=== PATIENT | male | born 1945 | race Caucasian/White ===

== ENCOUNTER 2016-12-12 07:03 | Emergency (ER) | payer MEDICARE ==
[2016-12-12 07:20] VITALS: BP 146/72
--- NOTE | 2016-12-12 12:05 | UC ---
Dexter Rachel Anna, scribed for Anastasiia Watters MD on 12/12/16 at 0722 . Ear Complaint HPI - HPI Summary HPI Summary: Patient is a 71 y/o male coming to [facility] presenting with left ear pain that began approx one week ago, worse since this am. Also reports some vertiginous, unsteady feelings, over the same timeframe. Sometimes vertigo to the left, but mostly unsteady. States has had the same symptoms in the past, most recently to this degree in May 2016; at that point, he had an ear infection (or fluid). Sx alleviated with ear drops and po abx. He had leftover ear drops (cortisporin ?), which he used in L ear yesterday. No facial pain, although difficult to tell since pain radiates from ear to face and neck. No fever / chills. No sob / cp / palpitations. No gi sx. No rash. No headache. No visual changes. No hearing issues, although a little stuffed up. No rash. Being followed by Dr. Rodriguez from [facility]. Recently had ct angio of carotids, and is planning to f/u accordingly. - History of Current Complaint Chief Complaint: UCEar Stated Complaint: EAR PAIN Hx Obtained From: Patient Onset/Duration: Still Present Severity Initially: Moderate Severity Currently: Moderate - Allergies/Home Medications Allergies/Adverse Reactions: Allergies Allergy/AdvReac Type Severity Reaction Status Date / Time No Known Allergies Allergy Verified 12/08/16 10:37 Home Medications: Home Medications oxyCODONE/Acetamin 5/325 MG* [Percocet 5/325 TAB*] 1 tab PO QID PRN 12/12/16 [ History Confirmed 12/12/16] PMH/Surg Hx/FS Hx/Imm Hx Previously Healthy: No - periph vasc dz. Endocrine History Of: Denies: Diabetes, Thyroid Disease Cardiovascular History Of: Reports: Cardiac Disorders - triple bypass, arteriosclerosis, Hypertension - on medication, Atrial Fibrillation Respiratory History Of: Reports: Bronchitis - LAST 3 YEARS Denies: COPD, Asthma GI/ History Of: Denies: Ulcer, Renal Disease - Surgical History Surgical History: Yes Surgery Procedure, Year, and Place: 9 stents cardiac, bypass, femoral stents, and carotid endartarectomy, Abdominal aortic stenosis surgery, right shoulder, knee surgery - Family History Known Family History: Positive: Cardiac Disease Negative: Blood Disorder - Social History Alcohol Use: None Substance Use Type: None Smoking Status (MU): Current Every Day Smoker Type: Cigarettes Amount Used/How Often: 7-8 CIG/DAY Have You Smoked in the Last Year: Yes - Immunization History Most Recent Influenza Vaccination: 2014 Most Recent Tetanus Shot: utd Review of Systems Constitutional: Negative Skin: Negative Eyes: Negative ENT: Ear Ache - see hpi Respiratory: Negative Cardiovascular: Negative Gastrointestinal: Negative Genitourinary: Negative Motor: Negative Neurovascular: Negative Musculoskeletal: Negative, Other: - + arthritic pain, chronic Neurological: Negative, Other - see hpi Psychological: Negative All Other Systems Reviewed And Are Negative: Yes Physical Exam Triage Information Reviewed: Yes Appearance: Well-Nourished - sitting up. able to ambulate slowly. Vital Signs: Temp Pulse Resp BP Pulse Ox 98 F 82 16 146/72 95 12/12/16 07:15 12/12/16 07:15 12/12/16 07:15 12/12/16 07:15 12/12/16 07:15 Vital Signs Reviewed: Yes Eye Exam: Normal ENT Exam: Other - L TM - + dull without light reflex. + erythema ranulfo inf ant and post margins. EAC mild cerumen. R TM initially not visible 2/2 cerumen impaction. S/p irrigation TM light rdz, + light reflex, intact. Neck exam: Other - + djd appearance. + L > R carotid bruit (states was aware) Respiratory Exam: Normal Respiratory: Positive: Chest non-tender, Lungs clear, Normal breath sounds, No respiratory distress, No accessory muscle use Cardiovascular Exam: Normal Cardiovascular: Positive: RRR, No Murmur, Pulses Normal - L radial pulse not palpable - 2/2 previous removal. R radial pulse good, correlate with HR., Brisk Capillary Refill, Other: - HR regular, good general skin color, good capillary refill Abdominal Exam: Normal Abdomen Description: Positive: Nontender, No Organomegaly, Soft Bowel Sounds: Positive: Present Musculoskeletal Exam: Normal Musculoskeletal: Positive: Strength Intact - gait slow steady Neurological Exam: Normal - Nonfocal, grossly intact. Except see hpi, subj dizzy. No nystagmus appreciated. Psychological Exam: Normal - Conversing easily and appropriately Skin Exam: Normal - No visible or reported rash Ear Complaint Course/Dx - Course Course Of Treatment: No new problems in CCC. I reviewed previous UC notes from May 2016. Rx cephalosporin at that time. Reviewed CT report from last week ( Dr. Rodriguez ordered), pt reports that he knows his R carotid is occluded, and L has problems. He reports that his symptoms are just like those in May. Indeed the examination is noteworthy for fluid and redness, c/w infection. However, given his significant vascular issues, he was strongly encouraged to go to the ED for worse or new symptoms, or symptoms that do not get better. R EAC flushed, he said he can hear better. Questions answered to the best of my ability. F/u PCP - he will call for f/u. F/u Vascular as planned. Considered below differential Dxs. - Differential Dx/Diagnosis Provider Diagnoses: OM L ear. Vertigo. Cerumen impaction Discharge - Discharge Plan Condition: Stable Disposition: HOME Prescriptions: Cefuroxime Axetil [Ceftin] 500 mg PO BID #20 tab Patient Education Materials: Cerumen Impaction (ED), Vertigo (ED), Otitis Media (ED), Earache (ED) Referrals: Carlene Miller MD [Primary Care Provider] - Additional Instructions: Please follow up with your primary care provider, Dr. Miller. Call today to schedule follow up appointment for this week. Follow up with Dr. Rodriguez. Call his office to schedule follow up appointment as planned. Seek immediate medical attention in the Emergency Department for worsening problems in the meantime. The documentation as recorded by the Dexter alvarez Anna accurately reflects the service I personally performed and the decisions made by me, Anastasiia Watters MD.
== END 2016-12-12 08:09 | disposition home or self-care (01) ==
LOC: UCEAST 07:03
DX: H66.92 Otitis media, unspecified, left ear (principal); R42 Dizziness and giddiness; H61.21 Impacted cerumen, right ear; I25.10 Atherosclerotic heart disease of native coronary artery without angina pectoris; Z95.5 Presence of coronary angioplasty implant and graft; Z95.1 Presence of aortocoronary bypass graft; F17.210 Nicotine dependence, cigarettes, uncomplicated
CPT/HCPCS: 99213; G0463

== ENCOUNTER 2017-01-13 13:02 | Emergency (ER) | payer MEDICARE ==
[2017-01-13 13:20] VITALS: BP 188/88
--- NOTE | 2017-01-13 14:45 | UC ---
Jairo Rachel Matthew, scribed for Ester Anthony DO on 01/13/17 at 1355 . Cardiac HPI - HPI Summary HPI Summary: A 71 y/o male presents to [facility] with pain behind the right shoulder blade since this morning. The pain is worse with deep breaths, described as sharp, does not radiate, and rated 9/10 in severity. The patient took oxycodone [employer] without relief. He also had chest pain this morning just to the right of center, associated clammy diaphoresis when waking up this morning which has since resolved. He took rolaids with relief in the chest pain. The patient denies SOB , wheezing, fever, dizziness, nausea, vomiting, pain in the left neck or jaw, and trauma. The patient occasionally lifts light weights. 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 He was recently Dx with polymyalgia rheumatica, which was relieved with prednisone that he's currently taking. The patient fracture his ribs 3 years ago. PMHx of CABG x3, HTN, Atherosclerosis. - History of Current Complaint Chief Complaint: UCChestPain Stated Complaint: UPPER BACK PAIN Time Seen by Provider: 01/13/17 13:13 Hx Obtained From: Patient Onset/Duration: Sudden Onset, Lasting Hours, Still Present Timing: Constant Initial Severity: Moderate Current Severity: Moderate Chest Pain Location: Right Anterior - just to the rt of center Character: Dull/Aching, Sharp/Stabbing Aggravating: Movement, Deep Breaths Alleviating: OTC Meds - rolaids Associated Signs & Symptoms: Positive: Chest Pain, Diaphoresis, Back Pain. Negative: Dizziness, SOB, Fever, Nausea/Vomiting, Cough, Hemoptysis, Abdominal Pain, Calf Pain/Swelling - Allergy/Home Medications Allergies/Adverse Reactions: Allergies Allergy/AdvReac Type Severity Reaction Status Date / Time Beta Adrenergic Blockers Allergy Unknown Verified 01/13/17 13:16 Reaction Details PMH/Surg Hx/FS Hx/Imm Hx Endocrine History Of: Denies: Diabetes, Thyroid Disease Cardiovascular History Of: Reports: Cardiac Disorders - triple bypass, arteriosclerosis, Hypertension - on medication, Atrial Fibrillation Respiratory History Of: Reports: Bronchitis - LAST 3 YEARS Denies: COPD, Asthma GI/ History Of: Denies: Ulcer, Renal Disease - Surgical History Surgical History: Yes Surgery Procedure, Year, and Place: 9 stents cardiac, bypass, femoral stents, and carotid endartarectomy, Abdominal aortic stenosis surgery, right shoulder, knee surgery - Family History Known Family History: Positive: Cardiac Disease Negative: Blood Disorder - Social History Occupation: Retired Lives: With Family Alcohol Use: None Substance Use Type: None Smoking Status (MU): Current Every Day Smoker Type: Cigarettes Amount Used/How Often: 7-8 CIG/DAY Length of Time of Smoking/Using Tobacco: 45 years Have You Smoked in the Last Year: Yes Cessation Counseling: Patient Advised to Stop - Immunization History Most Recent Influenza Vaccination: 2014 Most Recent Tetanus Shot: utd Review of Systems Constitutional: Chills, Other - Diaphoresis Skin: Negative Eyes: Negative ENT: Negative Respiratory: Negative Cardiovascular: Negative Gastrointestinal: Negative Genitourinary: Negative Motor: Negative Neurovascular: Negative Musculoskeletal: Negative Neurological: Negative Psychological: Negative All Other Systems Reviewed And Are Negative: Yes Physical Exam Triage Information Reviewed: Yes Appearance: Well-Nourished, Pain Distress - mild to moderate Vital Signs: Initial Vital Signs Temp 99.3 F 01/13/17 13:16 Pulse 94 01/13/17 13:16 Resp 20 01/13/17 13:16 BP 188/88 01/13/17 13:16 Pulse Ox 96 01/13/17 13:16 Vital Signs Reviewed: Yes Eyes: Positive: Conjunctiva Clear. Negative: Discharge ENT: Positive: Hearing grossly normal. Negative: Muffled/hoarse voice Neck: Positive: Supple, Nontender Respiratory: Positive: Chest non-tender, Lungs clear, Normal breath sounds, No respiratory distress, No accessory muscle use Cardiovascular: Positive: RRR, Other: - Murmur Abdomen Description: Positive: Nontender, Soft Bowel Sounds: Positive: Present Musculoskeletal: Positive: Strength Intact, No Edema, Other: - Point tender over the costovertebral junction of rib 5 and 6; NO calf tenderness Neurological Exam: Normal Neurological: Positive: Muscle Tone Normal Psychological: Positive: Age Appropriate Behavior Skin Exam: Other - warm, dry, normal color Diagnostics - EKG Cardiac Rate: NL - 94 bpm Cardiac Rhythm: Sinus: Normal - Minimal ST depression in V3-V5; 13:08 - Differential Diagnoses - Chest Pain Differential Diagnosis/HQI/PQRI: ACS, Chest Wall - costochondritis, rib dysfunction, GI Disease, Lower Respiratory Infection, Pulmonary Embolism, Other : - disection - Clinical Impression Provider Diagnoses: cp - Physician Notifications Discussed Patient Care With: Dr. Joseph (ED Physician) at 14:01 -- Notified of patient's history and accepts transfer of the patient. Discharge - Discharge Plan Condition: Stable Disposition: TRANS HIGHER LVL OF CARE FAC Referrals: Carlene Miller MD [Primary Care Provider] - The documentation as recorded by the Jairo alvarez Matthew accurately reflects the service I personally performed and the decisions made by , Ester Anthony DO.
== END 2017-01-13 14:10 | disposition short-term general hospital (02) ==
LOC: UCEAST 13:02
DX: R07.89 Other chest pain (principal); M54.6 Pain in thoracic spine; I70.90 Unspecified atherosclerosis; Z95.1 Presence of aortocoronary bypass graft; I10 Essential (primary) hypertension; F17.210 Nicotine dependence, cigarettes, uncomplicated
CPT/HCPCS: 93005; 99212; G0463

== ENCOUNTER 2017-01-13 14:15 | Emergency (ER) | payer MEDICARE ==
[2017-01-13] MEDS ORDERED: Morphine INJ* 4 MG/ML 1 ML SYRINGE IV ONE ×2 (14:48→17:04)
[2017-01-13] MEDS ORDERED: Ondansetron INJ* 2 MG/ML VIAL IV ONE (14:48)
[2017-01-13] MEDS: NS 0.9% 1000 ML* 2,000 ML IV ONE (14:58)
--- NOTE | 2017-01-13 15:26 | RAD ---
INDICATION: Right-sided chest pain. COMPARISON: Comparison is made with a prior chest x-ray study from April 12, 2015. TECHNIQUE: A portable view of the chest was obtained. FINDINGS: The patient is status post sternotomy and coronary artery bypass surgery. The heart is within normal limits in size. The lungs are clear. No pleural effusion is seen. IMPRESSION: POST SURGICAL CHANGES, NO EVIDENCE FOR ACUTE FINDING.
[2017-01-13 15:38] LABS: Hematocrit 40 % (42-52); Hemoglobin 13.4 g/dl (14.0-18.0); Mean Corpuscular HGB Conc 33 g/dl (31-36); Mean Corpuscular Hemoglobin 31 pg (27-31); Mean Corpuscular Volume 93 fL (80-94); Mean Platelet Volume 8 um3 (7.4-10.4); Red Blood Count 4.34 10^6/ul (4.0-5.4); Red Cell Distribution Width 17 % (10.5-15); White Blood Count 15.5 10^3/ul (3.5-10.8)
[2017-01-13 15:48] LABS: Urine Bacteria Absent (Absent); Urine Bilirubin Negative (Negative); Urine Glucose Negative (Negative); Urine Nitrite Negative (Negative)
[2017-01-13 15:52] LABS: Troponin I 0.03 ng/mL (<0.04)
[2017-01-13 15:54] LABS: ALT 35 U/L (7-52); AST 17 U/L (13-39); Albumin 4.1 g/dL (3.2-5.2); Alkaline Phosphatase 94 U/L (34-104); Anion Gap 9 mmol/L (2-11); BUN/Creatinine Ratio 27.1 (8-20); Blood Urea Nitrogen 32 mg/dL (6-24); C Reactive Protein < 1.00 mg/L (< 5.00); CO2 Carbon Dioxide 27 mmol/L (22-32); Chloride 99 mmol/L (101-111); Creatine Kinase 30 U/L (10-223); EGFR African American 77.8 (>60); EGFR Non-African American 60.5 (>60); Globulin 3.3 g/dL (2-4); Glucose 145 mg/dL (70-100); Lipase 45 U/L (11.0-82.0); Magnesium 1.8 mg/dL (1.9-2.7); Potassium 4.7 mmol/L (3.5-5.0); Sodium 135 mmol/L (133-145); Total Protein 7.4 g/dL (6.4-8.9)
[2017-01-13] MEDS ORDERED: Iohexol 350* (CONTRAST) 500 ML MDV IV ONE (16:02)
[2017-01-13 16:03] LABS: TSH (Thyroid Stimulating Horm) 1.19 mcIU/mL (0.34-5.60)
--- NOTE | 2017-01-13 16:37 | RAD ---
INDICATION: Right upper chest pain. COMPARISON: Comparison is made with a prior CT angiogram of the chest from November 30, 2014. TECHNIQUE: A CT angiogram of the chest was performed with intravenous following intravenous injection of 70 ml of Omnipaque 350 nonionic contrast. Contiguous axial sections were obtained from the lung apices through the lung bases. Images were reconstructed in the coronal and sagittal planes. FINDINGS: There is relatively homogeneous opacification of the pulmonary arteries. No intraluminal filling defect or pulmonary embolism is seen. The patient is status post sternotomy. The heart is mildly enlarged. No pericardial effusion is present. The thoracic aorta is normal in caliber. There is moderate calcific plaque present. There is homogeneous enhancement of the aorta. There is no evidence for dissection. No significant enlarged mediastinal or hilar lymph nodes are seen. There is mild dependent bilateral lower lobe subsegmental atelectasis. The lungs are otherwise clear. No pleural effusion is seen. No significant focal osseous abnormality is seen. IMPRESSION: NO EVIDENCE FOR PULMONARY EMBOLISM.
--- NOTE | 2017-01-13 17:56 | ED ---
Kwame Rachel Billy, scribed for Giancarlo Mcdonough MD on 01/13/17 at 1505 . HPI Chest Pain - HPI Summary HPI Summary: Patient is a 71 year-old male coming to [facility] for evaluation of right-upper chest pain radiating to the upper back "on the top of the right lung." Symptoms began approximately 3 hours [employer]. He describes sharp pain that is worse with deep breaths. Denies any SOB. Pain severity 9/10, unimproved with oxycodone. Denies any recent injury or trauma. Denies headache. - History of Current Complaint Chief Complaint: EDChestPainROMI Time Seen by Provider: 01/13/17 14:46 Hx Obtained From: Patient Onset/Duration: Started Hours Ago, Still Present Timing: Constant Initial Severity: Moderate Current Severity: Moderate Pain Intensity: 9 Pain Scale Used: 0-10 Numeric Chest Pain Location: Right Anterior Chest Pain Radiates: Yes Chest Pain Radiates To:: Back Character: Sharp/Stabbing Aggravating Factor(s): Deep Breaths Alleviating Factor(s): Nothing Associated Signs and Symptoms: Positive: Chest Pain, Back Pain. Negative: Shortness of Breath - Allergy/Home Medications Allergies/Adverse Reactions: Allergies Allergy/AdvReac Type Severity Reaction Status Date / Time Beta Adrenergic Blockers Allergy Unknown Verified 01/13/17 13:16 Reaction Details PMH/Surg Hx/FS Hx/Imm Hx Endocrine/Hematology History: Denies: Hx Diabetes, Hx Thyroid Disease Cardiovascular History: Reports: Hx Hypertension - on medication Respiratory History: Denies: Hx Asthma, Hx Chronic Obstructive Pulmonary Disease (COPD) GI History: Denies: Hx Ulcer History: Denies: Hx Renal Disease - Surgical History Surgery Procedure, Year, and Place: 9 stents cardiac, bypass, femoral stents, and carotid endartarectomy, Abdominal aortic stenosis surgery, right shoulder, knee surgery - Immunization History Date of Tetanus Vaccine: 2012 Date of Influenza Vaccine: 2013 Infectious Disease History: No Infectious Disease History: Denies: Hx Clostridium Difficile, Hx Hepatitis, Hx Human Immunodeficiency Virus (HIV), Hx of Known/Suspected MRSA, Hx Shingles, Hx Tuberculosis, History Other Infectious Disease, Traveled Outside the [place] in Last 30 Days - Family History Known Family History: Positive: Cardiac Disease Negative: Blood Disorder - Social History Alcohol Use: None Substance Use Type: Reports: None Smoking Status (MU): Current Every Day Smoker Type: Cigarettes Amount Used/How Often: 7-8 CIG/DAY Length of Time of Smoking/Using Tobacco: 45 years Have You Smoked in the Last Year: Yes Review of Systems Negative: Fever Positive: Chest Pain Negative: Shortness Of Breath Negative: Abdominal Pain Negative: Headache All Other Systems Reviewed And Are Negative: Yes Physical Exam Triage Information Reviewed: Yes Vital Signs On Initial Exam: Initial Vitals Temp Pulse Resp BP Pulse Ox 98.2 F 87 20 179/72 98 01/13/17 14:19 01/13/17 14:19 01/13/17 14:19 01/13/17 14:19 01/13/17 14:19 Vital Signs Reviewed: Yes Appearance: Positive: Well-Appearing, Pain Distress - Mild to moderate pain distress. Skin: Positive: Warm, Skin Color Reflects Adequate Perfusion, Dry Head/Face: Positive: Normal Head/Face Inspection Eyes: Positive: EOMI, LUCY ENT: Positive: Normal ENT inspection Neck: Positive: Supple, Nontender Respiratory/Lung Sounds: Positive: Clear to Auscultation, Breath Sounds Present Cardiovascular: Positive: RRR, Murmur Abdomen Description: Positive: Nontender, Soft Bowel Sounds: Positive: Present Musculoskeletal: Positive: Normal, Strength/ROM Intact, Other - Calves are soft and nontender.. Negative: Edema Left, Edema Right Neurological: Positive: Normal, Sensory/Motor Intact, Alert, Oriented to Person Place, Time Psychiatric: Positive: Affect/Mood Appropriate Diagnostics - Vital Signs Vital Signs Temp Pulse Resp BP Pulse Ox 01/13/17 14:58 16 01/13/17 14:19 98.2 F 87 20 179/72 98 - Laboratory Lab Results: Lab Results 01/13/17 01/13/17 01/13/17 Range/Units 15:00 15:00 15:00 WBC 15.5 H (3.5-10.8) 10^3/ul RBC 4.34 (4.0-5.4) 10^6/ul Hgb 13.4 L (14.0-18.0) g/dl Hct 40 L (42-52) % MCV 93 (80-94) fL MCH 31 (27-31) pg MCHC 33 (31-36) g/dl RDW 17 H (10.5-15) % Plt Count 406 (150-450) 10^3/ul MPV 8 (7.4-10.4) um3 Neut % (Auto) 80.9 (38-83) % Lymph % (Auto) 13.8 L (25-47) % [place] % (Auto) 4.5 (1-9) % Eos % (Auto) 0.2 (0-6) % Baso % (Auto) 0.6 (0-2) % Absolute Neuts (auto) 12.5 H (1.5-7.7) 10^3/ul Absolute Lymphs (auto) 2.1 (1.0-4.8) 10^3/ul Absolute Monos (auto) 0.7 (0-0.8) 10^3/ul Absolute Eos (auto) 0 (0-0.6) 10^3/ul Absolute Basos (auto) 0.1 (0-0.2) 10^3/ul Absolute Nucleated RBC 0.03 10^3/ul Nucleated RBC % 0.2 INR (Anticoag Therapy) 0.86 L (0.89-1.11) APTT 24.5 L (26.0-36.3) seconds Sodium (133-145) mmol/L Potassium (3.5-5.0) mmol/L Chloride (101-111) mmol/L Carbon Dioxide (22-32) mmol/L Anion Gap (2-11) mmol/L BUN (6-24) mg/dL Creatinine (0.67-1.17) mg/dL Est GFR ( Amer) (>60) Est GFR (Non-Af Amer) (>60) BUN/Creatinine Ratio (8-20) Glucose (70-100) mg/dL Lactic Acid (0.5-2.0) mmol/L Calcium (8.6-10.3) mg/dL Magnesium (1.9-2.7) mg/dL Total Bilirubin (0.2-1.0) mg/dL AST (13-39) U/L ALT (7-52) U/L Alkaline Phosphatase (34-104) U/L Total Creatine Kinase (10-223) U/L CK-MB (CK-2) (0.6-6.3) ng/mL Troponin I (<0.04) ng/mL C-Reactive Protein (< 5.00) mg/L B-Natriuretic Peptide ( - 100) pg/mL Total Protein (6.4-8.9) g/dL Albumin (3.2-5.2) g/dL Globulin (2-4) g/dL Albumin/Globulin Ratio (1-3) Lipase (11.0-82.0) U/L TSH (0.34-5.60) mcIU/mL Urine Color Yellow Urine Appearance Clear Urine pH 6.0 (5-9) Ur Specific [place] 1.014 (1.010-1.030) Urine Protein 2+(100 mg/dl) H (Negative) Urine Ketones Negative (Negative) Urine Blood Negative (Negative) Urine Nitrate Negative (Negative) Urine Bilirubin Negative (Negative) Urine Urobilinogen Negative (Negative) Ur Leukocyte Esterase Negative (Negative) Urine WBC (Auto) Trace(0-5/hpf) (Absent) Urine RBC (Auto) 2+(6-10/hpf) H (Absent) Ur Squamous Epith Cells Present H (Absent) Urine Bacteria Absent (Absent) Hyaline Casts Present H (Absent) Urine Glucose Negative (Negative) 01/13/17 01/13/17 01/13/17 Range/Units 15:00 15:00 15:00 WBC (3.5-10.8) 10^3/ul RBC (4.0-5.4) 10^6/ul Hgb (14.0-18.0) g/dl Hct (42-52) % MCV (80-94) fL MCH (27-31) pg MCHC (31-36) g/dl RDW (10.5-15) % Plt Count (150-450) 10^3/ul MPV (7.4-10.4) um3 Neut % (Auto) (38-83) % Lymph % (Auto) (25-47) % [place] % (Auto) (1-9) % Eos % (Auto) (0-6) % Baso % (Auto) (0-2) % Absolute Neuts (auto) (1.5-7.7) 10^3/ul Absolute Lymphs (auto) (1.0-4.8) 10^3/ul Absolute Monos (auto) (0-0.8) 10^3/ul Absolute Eos (auto) (0-0.6) 10^3/ul Absolute Basos (auto) (0-0.2) 10^3/ul Absolute Nucleated RBC 10^3/ul Nucleated RBC % INR (Anticoag Therapy) (0.89-1.11) APTT (26.0-36.3) seconds Sodium 135 (133-145) mmol/L Potassium 4.7 (3.5-5.0) mmol/L Chloride 99 L (101-111) mmol/L Carbon Dioxide 27 (22-32) mmol/L Anion Gap 9 (2-11) mmol/L BUN 32 H (6-24) mg/dL Creatinine 1.18 H (0.67-1.17) mg/dL Est GFR ( Amer) 77.8 (>60) Est GFR (Non-Af Amer) 60.5 (>60) BUN/Creatinine Ratio 27.1 H (8-20) Glucose 145 H (70-100) mg/dL Lactic Acid 2.0 (0.5-2.0) mmol/L Calcium 10.0 (8.6-10.3) mg/dL Magnesium 1.8 L (1.9-2.7) mg/dL Total Bilirubin 0.50 (0.2-1.0) mg/dL AST 17 (13-39) U/L ALT 35 (7-52) U/L Alkaline Phosphatase 94 (34-104) U/L Total Creatine Kinase 30 (10-223) U/L CK-MB (CK-2) 2.4 (0.6-6.3) ng/mL Troponin I 0.03 (<0.04) ng/mL C-Reactive Protein < 1.00 (< 5.00) mg/L B-Natriuretic Peptide 62 ( - 100) pg/mL Total Protein 7.4 (6.4-8.9) g/dL Albumin 4.1 (3.2-5.2) g/dL Globulin 3.3 (2-4) g/dL Albumin/Globulin Ratio 1.2 (1-3) Lipase 45 (11.0-82.0) U/L TSH 1.19 (0.34-5.60) mcIU/mL Urine Color Urine Appearance Urine pH (5-9) Ur Specific [place] (1.010-1.030) Urine Protein (Negative) Urine Ketones (Negative) Urine Blood (Negative) Urine Nitrate (Negative) Urine Bilirubin (Negative) Urine Urobilinogen (Negative) Ur Leukocyte Esterase (Negative) Urine WBC (Auto) (Absent) Urine RBC (Auto) (Absent) Ur Squamous Epith Cells (Absent) Urine Bacteria (Absent) Hyaline Casts (Absent) Urine Glucose (Negative) 01/13/17 Range/Units 17:12 WBC (3.5-10.8) 10^3/ul RBC (4.0-5.4) 10^6/ul Hgb (14.0-18.0) g/dl Hct (42-52) % MCV (80-94) fL MCH (27-31) pg MCHC (31-36) g/dl RDW (10.5-15) % Plt Count (150-450) 10^3/ul MPV (7.4-10.4) um3 Neut % (Auto) (38-83) % Lymph % (Auto) (25-47) % [place] % (Auto) (1-9) % Eos % (Auto) (0-6) % Baso % (Auto) (0-2) % Absolute Neuts (auto) (1.5-7.7) 10^3/ul Absolute Lymphs (auto) (1.0-4.8) 10^3/ul Absolute Monos (auto) (0-0.8) 10^3/ul Absolute Eos (auto) (0-0.6) 10^3/ul Absolute Basos (auto) (0-0.2) 10^3/ul Absolute Nucleated RBC 10^3/ul Nucleated RBC % INR (Anticoag Therapy) (0.89-1.11) APTT (26.0-36.3) seconds Sodium (133-145) mmol/L Potassium (3.5-5.0) mmol/L Chloride (101-111) mmol/L Carbon Dioxide (22-32) mmol/L Anion Gap (2-11) mmol/L BUN (6-24) mg/dL Creatinine (0.67-1.17) mg/dL Est GFR ( Amer) (>60) Est GFR (Non-Af Amer) (>60) BUN/Creatinine Ratio (8-20) Glucose (70-100) mg/dL Lactic Acid (0.5-2.0) mmol/L Calcium (8.6-10.3) mg/dL Magnesium (1.9-2.7) mg/dL Total Bilirubin (0.2-1.0) mg/dL AST (13-39) U/L ALT (7-52) U/L Alkaline Phosphatase (34-104) U/L Total Creatine Kinase (10-223) U/L CK-MB (CK-2) (0.6-6.3) ng/mL Troponin I 0.03 (<0.04) ng/mL C-Reactive Protein (< 5.00) mg/L B-Natriuretic Peptide ( - 100) pg/mL Total Protein (6.4-8.9) g/dL Albumin (3.2-5.2) g/dL Globulin (2-4) g/dL Albumin/Globulin Ratio (1-3) Lipase (11.0-82.0) U/L TSH (0.34-5.60) mcIU/mL Urine Color Urine Appearance Urine pH (5-9) Ur Specific [place] (1.010-1.030) Urine Protein (Negative) Urine Ketones (Negative) Urine Blood (Negative) Urine Nitrate (Negative) Urine Bilirubin (Negative) Urine Urobilinogen (Negative) Ur Leukocyte Esterase (Negative) Urine WBC (Auto) (Absent) Urine RBC (Auto) (Absent) Ur Squamous Epith Cells (Absent) Urine Bacteria (Absent) Hyaline Casts (Absent) Urine Glucose (Negative) Result Diagrams: 01/13/17 15:00 01/13/17 15:00 Lab Statement: Any lab studies that have been ordered have been reviewed, and results considered in the medical decision making process. - Radiology CXR Xray Interpretation: No Acute Changes Radiology Interpretation Completed By: Radiologist - CT CTA chest CT Interpretation Completed By: Radiologist - NO EVIDENCE FOR PULMONARY EMBOLISM. - EKG 1427 EKG Interpretation: NSR 82 bpm, LVH, no ectopy Re-Evaluation - Re-Evaluation First Eval Re-Evaluation Time: 16:55 Comment: Labs and imaging reviewed. Chest Pain Course/Dx - Course Course Of Treatment: NO CRITICAL CARE TIME Assessment/Plan: PAIN STARTED AT 1100 TODAY. TROPONIN AT 1600 WNL. NO ANTERIOR CHEST PAIN. PATIENT WISHES TO GO HOME. DISCUSSED RESULTS WITH PATIENT/FAMILY. DISCHARGE HOME STABLE. - Diagnoses Provider Diagnoses: Thoracic back pain, Chest pain Discharge - Discharge Plan Condition: Stable Disposition: HOME Patient Education Materials: Chest Pain (ED), Thoracic Pain (ED) Referrals: Carlene Miller MD [Primary Care Provider] - Additional Instructions: FOLLOW UP WITH YOUR DOCTOR. RETURN TO THE EMERGENCY DEPARTMENT FOR ANY WORSENING OF YOUR CONDITION; CHEST PAIN, SHORTNESS OF BREATH, YOU FEEL ILL OR QUESTIONS OR CONCERNS. The documentation as recorded by the Kwame alvarez Billy accurately reflects the service I personally performed and the decisions made by me, Giancarlo Mcdonough MD.
[2017-01-13 18:02] VITALS: BP 159/70
== END 2017-01-13 18:02 | disposition home or self-care (01) ==
LOC: ED 14:15
DX: M54.9 Dorsalgia, unspecified (principal); R07.9 Chest pain, unspecified; F17.210 Nicotine dependence, cigarettes, uncomplicated
CPT/HCPCS: 36415; 71010; 71275; 80053; 81003; 81015; 82550; 82553; 83605; 83690; 83735; 83880; 84443; 84484; 85025; 85610; 85730; 86140; 93005; 96374; 96375; 99283; J2270; J2405; Q9967

== ENCOUNTER → 2017-05-25 12:00 | Emergency (ER) | payer MEDICARE ==
--- NOTE | 2017-05-25 15:07 | RAD ---
HISTORY: Constipation COMPARISONS: None VIEWS: Frontal views of the abdomen. FINDINGS: BOWEL: There is a nonspecific bowel gas pattern, with nondilated small bowel gas noted. There is a large amount of stool within the colon. CALCULI: There are no abnormal calculi. BONES AND SOFT TISSUES: Degenerative changes are noted. There are advanced osteoarthritic changes of the left hip. The patient is status post median sternotomy OTHER FINDINGS: The lung bases are clear. There is no subphrenic gas. IMPRESSION: NONSPECIFIC BOWEL GAS PATTERN. LARGE AMOUNT OF STOOL THROUGHOUT THE COLON
--- NOTE | 2017-05-25 17:24 | ED ---
Connie Rachel Rebecca, scribed for Ruth Ann Esparza MD on 05/25/17 at 1645 . Complex/Multi-Sys Presentation - HPI Summary HPI Summary: Pt is a 72 y/o M who presents to ED c/o constipation. Pt reports sx began 4 days ago and has been constant since onset. Sx aggravated by nothing, alleviated by Dulcolax. Denies any other acute symptoms at this time. PMHx polymyalgia rheumatica, particularly in the L hip, for which he takes 10 mg of oxycodone 4x a day. Reports taking an extra dose due to worsened pain which he believes caused the current bout of constipation. - History Of Current Complaint Chief Complaint: EDGeneral Time Seen by Provider: 05/25/17 16:43 Hx Obtained From: Patient Onset/Duration: Lasting Days - 4 days, Still Present Timing: Constant Severity Currently: None Aggravating Factor(s): Nothing Alleviating Factor(s): Dulcolax - Allergies/Home Medications Allergies/Adverse Reactions: Allergies Allergy/AdvReac Type Severity Reaction Status Date / Time Beta Adrenergic Blockers Allergy Unknown Verified 05/07/17 14:24 Reaction Details PMH/Surg Hx/FS Hx/Imm Hx Endocrine/Hematology History: Denies: Hx Diabetes, Hx Thyroid Disease Cardiovascular History: Reports: Hx Hypertension - on medication Denies: Hx Hypercholesterolemia, Hx Pacemaker/ICD Respiratory History: Denies: Hx Asthma, Hx Chronic Obstructive Pulmonary Disease (COPD) GI History: Denies: Hx Ulcer History: Denies: Hx Renal Disease Musculoskeletal History: Reports: Other Musculoskeletal History - Polymyalgia rheumatica Sensory History: Denies: Hx Hearing Aid Psychiatric History: Denies: Hx Panic Disorder - Surgical History Surgery Procedure, Year, and Place: 9 stents cardiac, bypass, femoral BYPASS, and carotid endartarectomy, Abdominal aortic stenosis surgery([place]), right shoulder AC SEPARATION REPAIR, LT knee surgery CARTIEDGE REPAIR - Immunization History Date of Tetanus Vaccine: 2012 Date of Influenza Vaccine: 2013 Infectious Disease History: Denies: Hx Clostridium Difficile, Hx Hepatitis, Hx Human Immunodeficiency Virus (HIV), Hx of Known/Suspected MRSA, Hx Shingles, Hx Tuberculosis, History Other Infectious Disease, Traveled Outside the [place] in Last 30 Days - Family History Known Family History: Positive: Cardiac Disease, Hypertension Negative: Blood Disorder - Social History Alcohol Use: None Substance Use Type: Reports: None Smoking Status (MU): Current Every Day Smoker Type: Cigarettes Amount Used/How Often: 7-8 CIG/DAY Length of Time of Smoking/Using Tobacco: 45 years Have You Smoked in the Last Year: Yes Review of Systems Negative: Fever Positive: Other - Constipation All Other Systems Reviewed And Are Negative: Yes Physical Exam - Summary Physical Exam Summary: General: Well appearing, no pain distress Skin: Warm, Skin Color Reflects Adequate Perfusion, Dry Eyes: EOMI, LUCY ENT: Pharynx normal, TMs normal Neck: Supple, nontender Respiratory: CTA, breath sounds present, no rhonchi, no wheezes, no rales Cardiovascular: RRR, no murmur, no rub, no gallop Abdomen: Soft, nontender, Non-distended, no guarding, no rebound Bowel: Present Musculoskeletal: Complaining that in the L hip he has decreased ROM and pain, No edema Neuro: Sensory/motor intact, A&Ox3, CN intact 2-12 Psych: Affect/mood appropriate Triage Information Reviewed: Yes Vital Signs On Initial Exam: Initial Vitals Temp Pulse Resp BP Pulse Ox 97.6 F 93 20 140/68 97 05/25/17 12:07 05/25/17 12:07 05/25/17 12:07 05/25/17 12:07 05/25/17 12:07 Vital Signs Reviewed: Yes Diagnostics - Vital Signs Vital Signs Temp Pulse Resp BP Pulse Ox 05/25/17 15:49 98.0 F 86 16 130/55 98 05/25/17 14:30 98.1 F 77 14 149/59 98 05/25/17 12:07 97.6 F 93 20 140/68 97 - Laboratory Lab Statement: Any lab studies that have been ordered have been reviewed, and results considered in the medical decision making process. - Radiology Abd XR Radiology Interpretation Completed By: Radiologist - NONSPECIFIC BOWEL GAS PATTERN. LARGE AMOUNT OF STOOL THROUGHOUT THE COLON Complex Multi-Symp Course/Dx Assessment/Plan: Upon evaluation, pt reports that approximately 1 hour prior to being seen he had a BM and another one 15 minutes ago, clearing the BM himself. - Diagnoses Provider Diagnoses: Constipation, Chronic pain Discharge - Discharge Plan Condition: Stable Disposition: HOME Prescriptions: Bisacodyl SUPP* [Dulcolax Supp*] 10 mg [place] DAILY PRN #14 supp PRN Reason: Constipation Patient Education Materials: Constipation (ED) Referrals: Carlene Miller MD [Primary Care Provider] - 3 Days The documentation as recorded by the Connie alvarez Rebecca accurately reflects the service I personally performed and the decisions made by me, Ruth Ann Esparza MD.
[2017-05-25 17:43] VITALS: BP 127/55
== END | disposition home or self-care (01) ==
LOC: ED 12:00
DX: K59.00 Constipation, unspecified (principal); G89.29 Other chronic pain; F17.210 Nicotine dependence, cigarettes, uncomplicated
CPT/HCPCS: 74000; 99282

== ENCOUNTER → 2017-05-28 14:00 | Emergency (ER) | payer MEDICARE ==
[~2017-05-28 14:00] MED LIST: Morphine INJ* 10 MG/ML 1 ML SYRINGE ONE; Morphine INJ* 2 MG/ML 1 ML SYRINGE IV ONE; Morphine INJ* 4 MG/ML 1 ML SYRINGE IV ONE
[2017-05-28 15:22] LABS: Hematocrit 37 % (42-52); Mean Corpuscular HGB Conc 35 g/dl (31-36); Mean Corpuscular Hemoglobin 35 pg (27-31); Mean Corpuscular Volume 98 fL (80-94); Mean Platelet Volume 8 um3 (7.4-10.4); Red Blood Count 3.76 10^6/ul (4.0-5.4); Red Cell Distribution Width 15 % (10.5-15); White Blood Count 10.4 10^3/ul (3.5-10.8)
[2017-05-28 15:37] LABS: Urine Bacteria Absent (Absent); Urine Bilirubin Negative (Negative); Urine Glucose Negative (Negative); Urine Nitrite Negative (Negative)
--- NOTE | 2017-05-28 16:04 | RAD ---
HISTORY: Status post fall, leg pain COMPARISONS: None VIEWS: 3, Frontal and lateral views of the left foreleg FINDINGS: BONE DENSITY: Normal. BONES: There is no displaced fracture. JOINTS: There is no arthropathy. ALIGNMENT: There is no dislocation. SOFT TISSUES: Unremarkable. OTHER FINDINGS: None. IMPRESSION: NO ACUTE OSSEOUS INJURY. IF SYMPTOMS PERSIST, RECOMMEND REPEAT IMAGING.
[2017-05-28 16:09] LABS: Albumin 3.8 g/dL (3.2-5.2); C Reactive Protein 13.96 mg/L (< 5.00); Calcium 9.5 mg/dL (8.6-10.3); EGFR African American 86.9 (>60); EGFR Non-African American 67.6 (>60); Globulin 2.9 g/dL (2-4); Total Bilirubin 0.5 mg/dL (0.2-1.0); Total Protein 6.7 g/dL (6.4-8.9)
[2017-05-28 16:29] VITALS: BP 172/76
[2017-05-28 17:01] LABS: Erythrocyte Sed Rate 36 mm/Hr (0-40)
--- NOTE | 2017-05-28 18:50 | ED ---
Lower Extremity - HPI Summary HPI Summary: Patient presents to the ED with CC of left leg pain. Hx of polymyalgia rheumatica, avascular necrosis, diabetes, CKD and chronic hip pain. He has been taking oxycodone but this has been causing him constipation. He states that he had fallen a few days ago and landed on his left leg, but is uncertain how it happened. He has chronic pain in the leg, but is now having worsening pain, despite the oxycodone. He is a patient of Dr. Pritchard and Dr. Smith. Dr. Smith has stated she is unable to perform surgery on his hip d/t his co- morbidities. He is requesting an xray for his leg to assure nothing further is damaged. On arrival, he is frustrated and stating he cannot take the pain. Pain is 10/10, constant and only improves mildly with oxycodone. He has been taking 10mg oxycodone with pain reducing to 9/10. D/t pain he is experiencing insomnia and is unable to ambulate for more than a few seconds. VS stable on arrival. - History of Current Complaint Chief Complaint: EDExtremityLower Stated Complaint: LEFT LEG PAIN Time Seen by Provider: 05/28/17 14:07 Hx Obtained From: Patient, Family/Real Property Evaluator Mechanism Of Injury: Fall From A Standing Position - also from chronic pain from avascular necrosis Onset of Pain: Prior to Arrival Onset/Duration: Worse Since - this week s/p fall Severity Initially: Severe Severity Currently: Severe Pain Intensity: 10 Pain Scale Used: 0-10 Numeric Timing: Constant Location: Is Discrete @ - left hip Character Of Pain: Aching, Throbbing Associated Signs And Symptoms: Positive: Negative Aggravating Factor(s): Ambulation, Movement, Weight Bearing Alleviating Factor(s): Other - oxycodone - improves to 9/10 - Risk Factors Gout Risk Factors: Male, Diabetes, Hypertension, Renal Disease DVT Risk Factors: Negative Septic Arthritis Risk Factor: Immunosuppressed, Pre-existing Joint Disease - Allergies/Home Medications Allergies/Adverse Reactions: Allergies Allergy/AdvReac Type Severity Reaction Status Date / Time Beta Adrenergic Blockers Allergy Unknown Verified 06/03/17 18:17 Reaction Details PMH/Surg Hx/FS Hx/Imm Hx Previously Healthy: Yes Endocrine/Hematology History: Denies: Hx Diabetes, Hx Thyroid Disease Cardiovascular History: Reports: Hx Hypertension - on medication Denies: Hx Hypercholesterolemia, Hx Pacemaker/ICD Respiratory History: Denies: Hx Asthma, Hx Chronic Obstructive Pulmonary Disease (COPD) GI History: Denies: Hx Ulcer History: Denies: Hx Renal Disease Musculoskeletal History: Reports: Other Musculoskeletal History - Polymyalgia rheumatica Sensory History: Denies: Hx Hearing Aid Psychiatric History: Denies: Hx Panic Disorder - Surgical History Surgery Procedure, Year, and Place: 9 stents cardiac, bypass, femoral BYPASS, and carotid endartarectomy, Abdominal aortic stenosis surgery(BALLONING), right shoulder AC SEPARATION REPAIR, LT knee surgery CARTIEDGE REPAIR - Immunization History Date of Tetanus Vaccine: 2012 Date of Influenza Vaccine: 2013 Hx Pertussis Vaccination: No Immunizations Up to Date: Unable to Obtain/Confirm Infectious Disease History: No Infectious Disease History: Denies: Hx Clostridium Difficile, Hx Hepatitis, Hx Human Immunodeficiency Virus (HIV), Hx of Known/Suspected MRSA, Hx Shingles, Hx Tuberculosis, History Other Infectious Disease, Traveled Outside the [place] in Last 30 Days - Family History Known Family History: Positive: Cardiac Disease, Hypertension Negative: Blood Disorder - Social History Occupation: Unemployed, Disabled Lives: With Family Alcohol Use: None Hx Substance Use: No Substance Use Type: Reports: None Hx Tobacco Use: Yes Smoking Status (MU): Current Every Day Smoker Type: Cigarettes Amount Used/How Often: 7-8 CIG/DAY Length of Time of Smoking/Using Tobacco: 45 years Have You Smoked in the Last Year: Yes Review of Systems Constitutional: Negative Eyes: Negative Cardiovascular: Negative Respiratory: Negative Positive: no symptoms reported, see HPI Positive: Arthralgia, Myalgia Skin: Negative Neurological: Negative All Other Systems Reviewed And Are Negative: Yes Physical Exam Triage Information Reviewed: Yes Vital Signs On Initial Exam: Initial Vitals Temp Pulse Resp BP Pulse Ox 97.8 F 91 18 116/64 96 05/28/17 14:04 05/28/17 14:04 05/28/17 14:04 05/28/17 14:04 05/28/17 14:04 Vital Signs Reviewed: Yes Appearance: Positive: Ill-Appearing, Pain Distress Skin: Positive: Skin Color Reflects Adequate Perfusion Head/Face: Positive: Normal Head/Face Inspection, Temporal Artery Tenderness Eyes: Positive: EOMI, LUCY, Conjunctiva Clear Neck: Positive: Supple, No Lymphadenopathy Respiratory/Lung Sounds: Positive: Clear to Auscultation, Breath Sounds Present Cardiovascular: Positive: RRR Musculoskeletal: Positive: Pain @ - left hip, left lower extremity Neurological: Positive: Sensory/Motor Intact, Alert, Oriented to Person Place, Time, Speech Normal Psychiatric: Positive: Other - frusterated d/t pain AVPU Assessment: Alert Diagnostics - Vital Signs Vital Signs Temp Pulse Resp BP Pulse Ox 05/28/17 17:25 99.1 F 05/28/17 16:44 20 05/28/17 16:27 98.3 F 80 16 172/76 96 05/28/17 14:59 18 05/28/17 14:04 97.8 F 91 18 116/64 96 - Laboratory Lab Results: Lab Results 05/28/17 05/28/17 05/28/17 Range/Units 15:05 15:05 15:05 WBC 10.4 (3.5-10.8) 10^3/ul RBC 3.76 L (4.0-5.4) 10^6/ul Hgb 13.0 L (14.0-18.0) g/dl Hct 37 L (42-52) % MCV 98 H (80-94) fL MCH 35 H (27-31) pg MCHC 35 (31-36) g/dl RDW 15 (10.5-15) % Plt Count 296 (150-450) 10^3/ul MPV 8 (7.4-10.4) um3 Neut % (Auto) 82.9 (38-83) % Lymph % (Auto) 11.2 L (25-47) % [place] % (Auto) 4.6 (1-9) % Eos % (Auto) 0.6 (0-6) % Baso % (Auto) 0.7 (0-2) % Absolute Neuts (auto) 8.6 H (1.5-7.7) 10^3/ul Absolute Lymphs (auto) 1.2 (1.0-4.8) 10^3/ul Absolute Monos (auto) 0.5 (0-0.8) 10^3/ul Absolute Eos (auto) 0.1 (0-0.6) 10^3/ul Absolute Basos (auto) 0.1 (0-0.2) 10^3/ul Absolute Nucleated RBC 0 10^3/ul Nucleated RBC % 0 ESR 36 (0-40) mm/Hr Sodium 134 (133-145) mmol/L Potassium 4.0 (3.5-5.0) mmol/L Chloride 98 L (101-111) mmol/L Carbon Dioxide 27 (22-32) mmol/L Anion Gap 9 (2-11) mmol/L BUN 30 H (6-24) mg/dL Creatinine 1.07 (0.67-1.17) mg/dL Est GFR ( Amer) 86.9 (>60) Est GFR (Non-Af Amer) 67.6 (>60) BUN/Creatinine Ratio 28.0 H (8-20) Glucose 128 H (70-100) mg/dL Calcium 9.5 (8.6-10.3) mg/dL Total Bilirubin 0.50 (0.2-1.0) mg/dL AST 21 (13-39) U/L ALT 23 (7-52) U/L Alkaline Phosphatase 63 (34-104) U/L C-Reactive Protein 13.96 H (< 5.00) mg/L Total Protein 6.7 (6.4-8.9) g/dL Albumin 3.8 (3.2-5.2) g/dL Globulin 2.9 (2-4) g/dL Albumin/Globulin Ratio 1.3 (1-3) Urine Color Yellow Urine Appearance Clear Urine pH 8.0 (5-9) Ur Specific Rush 1.011 (1.010-1.030) Urine Protein 1+(30 mg/dl) H (Negative) Urine Ketones Negative (Negative) Urine Blood Negative (Negative) Urine Nitrate Negative (Negative) Urine Bilirubin Negative (Negative) Urine Urobilinogen Negative (Negative) Ur Leukocyte Esterase Negative (Negative) Urine WBC (Auto) Absent (Absent) Urine RBC (Auto) Absent (Absent) Urine Bacteria Absent (Absent) Urine Glucose Negative (Negative) Result Diagrams: 05/28/17 15:05 05/28/17 15:05 Lab Statement: Any lab studies that have been ordered have been reviewed, and results considered in the medical decision making process. Lower Extremity Course/Dx - Course Course Of Treatment: Patient presents with worsening left hip pain s/p fall. He is a current patient of Dr. Pritchard and Dr. Smith. He is to have an appt this week on 05/30/17 with the pain clinic for his chronic unconctrolled pain. Dr. Smith has stated to him she is unable to perform hip surgery for his avascular necrosis d/t comorbidities. He has a nerve conduction study tomorrow at Dr. Pritchard's office. Dr. Pritchard was called by myself to discuss pain management and make him aware that his patient is here with uncontrolled pain. Pain may or may not be d/t PMR and I have stated he will follow up for better pain control with Dr. Van on 05/30/17. He agrees this is a good idea. I have given him 2 IV doses of 8mg Morphine in ED with a reduction of pain from 10 to 9. I have discussed with him we will change his medications from oxycodone to morphine. It was explained to the patient this medication is not to be meant for retirement, but I will give him 3 days worth of medications to last until follow up with pain management. Dr. Smith was not called for this visit. Medications were reveiwed with patient and morphine is safe in CKD. Encouarged to follow up with PCP or return to ED for worsening symptoms. Return precautions given. Patient understands and agrees with plan. Ok for discharge. - Diagnoses Differential Diagnosis/HQI/PQRI: Positive: Fracture (Closed), Fracture (Open), Other - avascular necrosis, uncontrolled pain, PMR Provider Diagnoses: Uncontrolled pain - Physician Notifications Discussed Care Of Patient With: Kaden Pritchard Instructed by Provider To: Have Pt Call For Appt. Discharge - Discharge Plan Condition: Stable Disposition: HOME Patient Education Materials: Morphine, Slow Release (By mouth), Polymyalgia Rheumatica (ED) Referrals: Carlene Miller MD [Primary Care Provider] - Kaden Pritchard MD [Medical Doctor] - Wilmer Sierra MD [Medical Doctor] - Additional Instructions: Follow up with scheduled appointments. May take 30mg up to every 4 hours morphine as needed for pain.
== END | disposition home or self-care (01) ==
LOC: ED 14:00
DX: M79.605 Pain in left leg (principal); I10 Essential (primary) hypertension; Z95.5 Presence of coronary angioplasty implant and graft; F17.210 Nicotine dependence, cigarettes, uncomplicated
CPT/HCPCS: 36415; 80053; 81003; 81015; 85025; 85652; 86140; 96374; 96376; 99282; J2270

== ENCOUNTER 2017-05-30 10:47 | Emergency (ER) | payer MEDICARE ==
[2017-05-30 11:46] VITALS: BP 99/51
--- NOTE | 2017-05-30 12:05 | ED ---
Maximus Rachel SooYoung, scribed for Rmay Joseph MD on 05/30/17 at 1115 . Dizziness - HPI Summary HPI Summary: A 72 y/o M presents to ED with c/o dizziness onset this AM with spontaneous resolution. Pt was sent to ED from pain clinic for hypotension. Pt has chronic L hip pain, and was seen two days ago in ED. He believes he was given Morphine extended release. He took his meds last night at 2230, 0230, and this AM at 0830. He spoke to Dr. Sierra who states he'll switch him to twice a day. At bedside, pt states he is feeling better and would like to go home. - History Of Current Complaint Chief Complaint: EDDizziness Stated Complaint: LOW BP Time Seen by Provider: 05/30/17 11:11 Hx Obtained From: Patient, Family/Director Of Nurses Registry Onset/Duration: Resolved Timing: Minutes Severity Initially: Mild Severity Currently: Mild Character: Dizzy Associated Signs And Symptoms: Positive: Other: - hypotension SOMMELIER - Allergies/Home Medications Allergies/Adverse Reactions: Allergies Allergy/AdvReac Type Severity Reaction Status Date / Time Beta Adrenergic Blockers Allergy Unknown Verified 05/30/17 10:06 Reaction Details PMH/Surg Hx/FS Hx/Imm Hx Previously Healthy: No Endocrine/Hematology History: Reports: Hx Anticoagulant Therapy - Pt on Plavix Denies: Hx Diabetes, Hx Thyroid Disease Cardiovascular History: Reports: Hx Angioplasty, Hx Coronary Artery Disease, Hx Hypercholesterolemia, Hx Hypertension - on medication Denies: Hx Pacemaker/ICD Respiratory History: Reports: Hx Chronic Obstructive Pulmonary Disease (COPD) Denies: Hx Asthma GI History: Denies: Hx Ulcer History: Denies: Hx Renal Disease Musculoskeletal History: Reports: Other Musculoskeletal History - Polymyalgia rheumatica Sensory History: Reports: Hx Contacts or Glasses Denies: Hx Hearing Aid Opthamlomology History: Reports: Hx Contacts or Glasses Psychiatric History: Denies: Hx Panic Disorder - Surgical History Surgery Procedure, Year, and Place: 9 stents cardiac, bypass, femoral BYPASS, and carotid endartarectomy, Abdominal aortic stenosis surgery(BALLOONING), right shoulder AC SEPARATION REPAIR, LT knee surgery CARTILEDGE REPAIR, ganglion cyst removed from foot - Immunization History Date of Tetanus Vaccine: 2012 Date of Influenza Vaccine: 2013 Infectious Disease History: Denies: Hx Clostridium Difficile, Hx Hepatitis, Hx Human Immunodeficiency Virus (HIV), Hx of Known/Suspected MRSA, Hx Shingles, Hx Tuberculosis, History Other Infectious Disease, Traveled Outside the [place] in Last 30 Days - Family History Known Family History: Positive: Cardiac Disease, Hypertension Negative: Blood Disorder - Social History Occupation: Retired Lives: With Family Alcohol Use: None Hx Substance Use: Yes Substance Use Type: Reports: Prescribed Hx Tobacco Use: Yes Smoking Status (MU): Current Every Day Smoker Type: Cigarettes Amount Used/How Often: 7-8 CIG/DAY Length of Time of Smoking/Using Tobacco: 45 years Have You Smoked in the Last Year: Yes Review of Systems Negative: Fever Positive: Other - pos: hypotension SOMMELIER Neurological: Other - pos: dizziness, resolved All Other Systems Reviewed And Are Negative: Yes Physical Exam - Summary Physical Exam Summary: The patient is well-nourished in no acute distress and in no acute pain. The skin is warm and dry and skin color reflects adequate perfusion. HEENT: The head is normocephalic and atraumatic. The pupils are equal and reactive. The conjunctivae are clear and without drainage. Nares are patent and without drainage. Mouth reveals moist mucous membranes and the throat is without erythema and exudate. The external ears are intact. The ear canals are patent and without drainage. The tympanic membranes are intact. Neck is supple with full range of motion and non-tender. There are no carotid bruits. There is no neck vein distension. Respiratory: Chest is non-tender. Lungs are clear to auscultation and breath sounds are symmetrical and equal. Cardiovascular: Heart is regular rate and rhythm. There is no murmur or rub auscultated. There is no peripheral edema and pulses are symmetrical and equal. Abdomen: The abdomen is soft and non-tender. There is no organomegaly palpated. Musculoskeletal: There is no back pain noted. Extremities are non-tender with full range of motion. There is good capillary refill, good pulses distally. There is no peripheral edema or calf tenderness elicited. Neurological: Patient is alert and oriented to person, place and time. The patient has symmetrical motor strength in all four extremities. Cranial nerves are grossly intact. Deep tendon reflexes are symmetrical and equal in all four extremities. Pt is no longer dizzy. Psychiatric: The patient has an appropriate affect and does not exhibit any anxiety or depression. Triage Information Reviewed: Yes Vital Signs On Initial Exam: Initial Vitals Temp Pulse Resp BP Pulse Ox 96.8 F 78 16 106/57 95 05/30/17 11:13 05/30/17 11:13 05/30/17 11:13 05/30/17 11:13 05/30/17 11:13 Vital Signs Reviewed: Yes Diagnostics - Vital Signs Vital Signs Temp Pulse Resp BP Pulse Ox 05/30/17 11:45 96.8 F 78 18 99/51 05/30/17 11:13 96.8 F 78 16 106/57 95 - Laboratory Lab Statement: Any lab studies that have been ordered have been reviewed, and results considered in the medical decision making process. Dizzy Course/Dx - Course Course Of Treatment: Pt is a 72 y/o M presenting with c/o dizziness onset this AM with spontaneous resolution. Pt was sent to ED from pain clinic for hypotension. Pt has chronic L hip pain, and seen two days ago. He was given Morphine extended release. He took his meds last night at 2230, 0230, and this AM at 0830. He spoke to Dr. Van who states he'll switch him to twice a day. At bedside, pt states he is feeling better and would like to go home. Pt feels his hypotension is due to changes in pain medication. Feels better at bedside, and is no longer dizzy. Pt is strongly declining further evaluation and investigation into his hypotension. Will D/C to f/u with PCP. - Diagnoses Differential Diagnosis/HQI/PQRI: Dysrhythmia, GI Bleed, Hypovolemia, Medication Reaction, Myocardial Infarction Provider Diagnoses: Hypotension, Chronic hip pain Discharge - Discharge Plan Condition: Stable Disposition: HOME Patient Education Materials: Hypotension (ED), Hip Pain (ED) Referrals: Carlene Miller MD [Primary Care Provider] - 1 Day Additional Instructions: Follow up with your primary care provider to further evaluate your low blood pressure. Please return to the ED if you experience new or worsening symptoms. The documentation as recorded by the Maximus alvarez SooYoung accurately reflects the service I personally performed and the decisions made by me, Ramy Joseph MD.
== END 2017-05-30 11:46 | disposition home or self-care (01) ==
LOC: ED 10:47
DX: M25.559 Pain in unspecified hip (principal); R42 Dizziness and giddiness; F17.210 Nicotine dependence, cigarettes, uncomplicated; I95.9 Hypotension, unspecified
CPT/HCPCS: 99282

== ENCOUNTER 2017-06-03 17:42 | Emergency (ER) | payer MEDICARE ==
[2017-06-03 18:16] VITALS: BP 187/94
--- NOTE | 2017-06-03 18:20 | UC ---
Complaint Female HPI - HPI Summary HPI Summary: 72 YEAR OLD MALE PRESENTS WITH COMPLAINS OF FREQUENT URINATION. - History Of Current Complaint Chief Complaint: UCGU Stated Complaint: FREQUENT URINATION Time Seen by Provider: 06/03/17 18:20 Onset/Duration: Sudden Onset Timing: Constant Severity Initially: Moderate Severity Currently: Moderate Pain Scale Used: 0-10 Numeric - 8 Character: Sharp - Allergies/Home Medications Allergies/Adverse Reactions: Allergies Allergy/AdvReac Type Severity Reaction Status Date / Time Beta Adrenergic Blockers Allergy Unknown Verified 06/03/17 18:17 Reaction Details PMH/Surg Hx/FS Hx/Imm Hx Previously Healthy: Yes Other History Of: Anticoagulant Therapy - Pt on Plavix - Surgical History Surgical History: Yes Surgery Procedure, Year, and Place: 9 stents cardiac, bypass, femoral BYPASS, and carotid endartarectomy, Abdominal aortic stenosis surgery(BALLOONING), right shoulder AC SEPARATION REPAIR, LT knee surgery CARTILEDGE REPAIR, ganglion cyst removed from foot - Family History Known Family History: Positive: Cardiac Disease, Hypertension Negative: Blood Disorder - Social History Alcohol Use: None Substance Use Type: Prescribed Smoking Status (MU): Current Every Day Smoker Type: Cigarettes Amount Used/How Often: 7-8 CIG/DAY Length of Time of Smoking/Using Tobacco: 45 years Have You Smoked in the Last Year: Yes - Immunization History Most Recent Influenza Vaccination: 2014 Most Recent Tetanus Shot: utd Review of Systems Constitutional: Negative Skin: Negative Eyes: Negative ENT: Negative Respiratory: Negative Cardiovascular: Negative Gastrointestinal: Negative Genitourinary: Frequency Motor: Negative Neurovascular: Negative Musculoskeletal: Negative Neurological: Negative Psychological: Negative All Other Systems Reviewed And Are Negative: Yes Physical Exam Triage Information Reviewed: Yes Vital Signs: Initial Vital Signs Temp 37.6 C 06/03/17 18:14 Pulse 113 06/03/17 18:14 Resp 18 06/03/17 18:14 BP 187/94 06/03/17 18:14 Pulse Ox 97 06/03/17 18:14 Eye Exam: Normal ENT Exam: Normal Dental Exam: Normal Neck exam: Normal Neck: Positive: 1 Respiratory Exam: Normal Cardiovascular Exam: Normal Abdominal Exam: Normal Musculoskeletal Exam: Normal Neurological Exam: Normal Psychological Exam: Normal Skin Exam: Normal Complaint Female Dx - Differential Dx/Diagnosis Provider Diagnoses: FREQUENT URINATION Discharge - Discharge Plan Condition: Stable Disposition: HOME Prescriptions: Ciprofloxacin TAB* [Cipro 500 MG TAB*] 500 mg PO BID #14 tab Patient Education Materials: Prostatitis (ED), Urinary Tract Infection in Men ( ED) Referrals: Carlene Miller MD [Primary Care Provider] - Maury Cutler MD [Medical Doctor] -
[2017-06-03] MEDS ORDERED: Ciprofloxacin TAB* 500 MG PO ONE (18:42)
== END 2017-06-03 19:39 | disposition home or self-care (01) ==
LOC: UCEAST 17:42
DX: R35.0 Frequency of micturition (principal); I10 Essential (primary) hypertension; F17.210 Nicotine dependence, cigarettes, uncomplicated; Z79.02 Long term (current) use of antithrombotics/antiplatelets; Z95.5 Presence of coronary angioplasty implant and graft
CPT/HCPCS: 81003; 87086; 99212; A9270-GY; G0463

== ENCOUNTER 2017-09-07 07:11 | Emergency (ER) | payer MEDICARE ==
[2017-09-07 07:25] VITALS: BP 186/73
--- NOTE | 2017-09-07 07:44 | UC ---
HPI Wound/Suture Re-check - HPI Summary HPI Summary: 72 yo male 10 days s/p right carotid stent right fem artery approach surgical site with mild burning when he goes up stairs one area of the site periodically opens and leaves a drop of blood on bandage no pain currently no swelling wants to make sure it's not infection - History Of Current Complaint Chief Complaint: UCSkin Stated Complaint: WOUND CHECK Time Seen by Provider: 09/07/17 07:27 Hx Obtained From: Patient Onset/Duration: Sudden Onset, Lasting Weeks Severity: Mild Pain Intensity: 0 Pain Scale Used: 0-10 Numeric - Allergies/Home Medications Allergies/Adverse Reactions: Allergies Allergy/AdvReac Type Severity Reaction Status Date / Time Beta Adrenergic Blockers Allergy Unknown Verified 09/07/17 07:16 Reaction Details Home Medications: Home Medications Buprenorphine 10 MCG PATCH(NF) [Butrans 10 MCG PATCH(NF)] 10 mcg TD 09/07/17 [ History] Omeprazole CAP* [Prilosec CAP* 20 MG] 20 mg PO DAILY 09/07/17 [History Confirmed 09/07/17] Prednisone 2.5 mg PO 09/07/17 [History] PMH/Surg Hx/FS Hx/Imm Hx Cardiovascular History: Cardiac Disease, Other - PVD Other Cardiovascular History: PVD Other History Of: Anticoagulant Therapy - Pt on Plavix - Surgical History Surgical History: Yes Surgery Procedure, Year, and Place: 9 stents cardiac, bypass, femoral BYPASS, and carotid endartarectomy, Abdominal aortic stenosis surgery(BALLOONING), right shoulder AC SEPARATION REPAIR, LT knee surgery CARTILEDGE REPAIR, ganglion cyst removed from foot - Family History Known Family History: Positive: Cardiac Disease, Hypertension Negative: Diabetes, Blood Disorder - Social History Alcohol Use: None Substance Use Type: None Smoking Status (MU): Current Every Day Smoker Type: Cigarettes Amount Used/How Often: 1 pack per week Length of Time of Smoking/Using Tobacco: 45 years Have You Smoked in the Last Year: Yes Household Exposure Type: Cigarettes - Immunization History Most Recent Influenza Vaccination: 2014 Most Recent Tetanus Shot: utd Review of Systems Constitutional: Negative Skin: Negative Eyes: Negative ENT: Negative Respiratory: Negative Cardiovascular: Negative Gastrointestinal: Negative Genitourinary: Negative Motor: Negative Neurovascular: Negative Musculoskeletal: Arthralgia - chronic left hip pain Neurological: Negative Psychological: Negative Is Patient Immunocompromised?: No All Other Systems Reviewed And Are Negative: Yes Physical Exam Triage Information Reviewed: Yes Appearance: Well-Appearing, No Pain Distress, Well-Nourished Vital Signs: Initial Vital Signs Temp 98.9 F 09/07/17 07:16 Pulse 91 09/07/17 07:16 Resp 18 09/07/17 07:16 BP 186/73 09/07/17 07:16 Pulse Ox 99 09/07/17 07:16 Vital Signs Reviewed: Yes Eyes: Positive: Conjunctiva Clear ENT: Negative: Hearing grossly normal, Nasal congestion, Nasal drainage, Trismus , Muffled voice, Hoarse voice Neck: Positive: Supple, Nontender Respiratory: Positive: Lungs clear, Normal breath sounds, No respiratory distress Cardiovascular: Positive: RRR. Negative: No Murmur - III/ MCKAYLA Bowel Sounds: Positive: Present Musculoskeletal: Positive: No Edema, ROM Limited @ - left hip Neurological: Positive: Alert Skin Exam: Other - 2mm wound dihescens right groin/no bleeding/no ertyhema/no d/ c Course/Dx - Differential Dx - Laceration/Wound Provider Diagnoses: mild superficial wound dihescense right groin Discharge - Discharge Plan Condition: Stable Disposition: HOME Prescriptions: Mupirocin 2% OINT* [Bactroban 2 % Oint*] 1 applic TOPICAL BID #1 tube Referrals: Carlene Miller MD [Primary Care Provider] - If Needed Additional Instructions: apply thin film to wound 2x day until healed call for any questions return for any concerns of infection
== END 2017-09-07 07:44 | disposition home or self-care (01) ==
LOC: UCEAST 07:11
DX: T81.31XA Disruption of external operation (surgical) wound, not elsewhere classified, initial encounter (principal)
CPT/HCPCS: 99212; G0463

== ENCOUNTER 2019-07-08 07:26 | Emergency (ER) | payer MEDICARE ==
[2019-07-08 07:41] VITALS: BP 147/69
[2019-07-08] MEDS ORDERED: Tetan/Diph/Pertus SYR(Tdap)* 0.5 ML SYR(BOOSTRIX) use SYR contains LATEX IM ONE (09:01)
--- NOTE | 2019-07-08 09:22 | UC ---
Skin Complaint HPI - HPI Summary HPI Summary: LACERATED HIS LEFT LOWER LEG ON A CAR DOOR ABOUT ONE WEEK AGO. STATES SINCE THEN IT HAS CONTINUED TO OOZE. PATIENT IS ON FULL STRENGTH ASPIRIN AND PLAVIX DAILY. STATES HE HAS POURED PEROXIDE ON IT AND USED OTC TOPICAL QUICK STOP CLOTTING POWDER. IT IS NOW RED AND SWOLLEN. UNKNOWN DATE OF LAST TETANUS. - History of Current Complaint Chief Complaint: UCWounds Time Seen by Provider: 07/08/19 08:39 Stated Complaint: WOUND ON LEG Hx Obtained From: Patient Onset/Duration: Gradual Onset, Lasting Days, Still Present Timing: Constant Onset Severity: Moderate Current Severity: Moderate Pain Intensity: 2 Pain Scale Used: 0-10 Numeric Character: Swelling, Redness, Painful Aggravating Factor(s): Touch Alleviating Factor(s): Nothing Associated Signs & Symptoms: Positive: Drainage, Tenderness - Allergy/Home Medications Allergies/Adverse Reactions: Allergies Allergy/AdvReac Type Severity Reaction Status Date / Time Beta-Blockers Allergy Intermediate Unknown Verified 07/08/19 07:43 (Beta-Adrenergic Bloc Reaction Details Home Medications: Home Medications Aspirin [Ecotrin] 325 mg PO DAILY WITH MEAL 07/08/19 [History Confirmed 07/08/19 ] Cholecalciferol TAB* [Vitamin D TAB*] 400 unit PO DAILY 07/08/19 [History Confirmed 07/08/19] Docusate Sodium [Stool Softener] 50 mg PO DAILY WITH MEAL 07/08/19 [History Confirmed 07/08/19] Ezetimibe 10 mg PO DAILY WITH MEAL 07/08/19 [History Confirmed 07/08/19] PMH/Surg Hx/FS Hx/Imm Hx Cardiovascular History: Cardiac Disease, Hypertension Cancer History: Prostate Cancer Other History Of: Anticoagulant Therapy - Pt on Plavix - Surgical History Surgical History: Yes Surgery Procedure, Year, and Place: 9 stents cardiac, bypass, femoral BYPASS, and carotid endartarectomy, Abdominal aortic stenosis surgery(BALLOONING), right shoulder AC SEPARATION REPAIR, LT knee surgery CARTILEDGE REPAIR, ganglion cyst removed from foot - Family History Known Family History: Positive: Cardiac Disease, Hypertension Negative: Diabetes, Blood Disorder - Social History Alcohol Use: None Substance Use Type: None Smoking Status (MU): Current Some Day Smoker Type: Cigarettes Amount Used/How Often: 1 pack per week Length of Time of Smoking/Using Tobacco: 45 years Have You Smoked in the Last Year: Yes Household Exposure Type: Cigarettes - Immunization History Most Recent Influenza Vaccination: 2014 Most Recent Tetanus Shot: utd Review of Systems All Other Systems Reviewed And Are Negative: Yes Constitutional: Positive: Negative Skin: Positive: Other - WOUND LEFT LEG Respiratory: Positive: Negative Cardiovascular: Positive: Negative Gastrointestinal: Positive: Negative Musculoskeletal: Positive: Negative Physical Exam Triage Information Reviewed: Yes Appearance: Well-Appearing, No Pain Distress, Well-Nourished Vital Signs: Initial Vital Signs Temp 98.2 F 07/08/19 07:36 Pulse 78 07/08/19 07:36 Resp 18 07/08/19 07:36 BP 147/69 07/08/19 07:36 Pulse Ox 97 07/08/19 07:36 Vital Signs Reviewed: Yes Eyes: Positive: Conjunctiva Clear ENT: Positive: Hearing grossly normal Neck: Positive: Supple Respiratory: Positive: No respiratory distress, No accessory muscle use Cardiovascular: Positive: Pulses Normal Abdomen Description: Positive: Soft Musculoskeletal: Positive: ROM Intact Neurological: Positive: Alert Psychological: Positive: Age Appropriate Behavior Skin: Positive: Other - 6CM X 0.8CM CRESCENT SHAPED WOUND LEFT ANTEROLATERAL LOWER LEG WITH 9CM X 6CM AREA OF SURROUNDING ERYTHEMA AND EDEMA. WOUND CAKED/ CRUSTED WITH OTC QUICK STOP TOPICAL POWDER. SOME PURULENT OOZING FROM THE THE CENTER. Course/Dx - Course Course Of Treatment: PATIENT REQUIRES FURTHER WOUND CARE THAN WHAT IS AVAILABLE AT THE URGENT CARE. I CALLED AND SPOKE TO THE WOUND CARE CLINIC AT [facility] [place] HE IS TO GO DIRECTLY THERE FROM HERE FOR FURTHER EVALUATION AND MANAGEMENT. WILL DEFER ANTIBIOTIC TREATMENT TO WOUND CARE CLINIC WELL. - Diagnoses Provider Diagnosis: Cellulitis of left lower leg, Nonhealing nonsurgical wound Discharge ED - Sign-Out/Discharge Documenting (check all that apply): Patient Departure All imaging exams completed and their final reports reviewed: No Studies - Discharge Plan Condition: Stable Disposition: HOME Patient Education Materials: Wound Infection (ED), Cellulitis (ED) Referrals: Carlene Miller MD [Primary Care Provider] - Additional Instructions: GO DIRECTLY TO THE HOSPITAL FROM HERE AND CHECK IN AT THE TOP ICER/ ADMISSIONS. YOU NEED TO BE DIRECTED TO THE WOUND CARE CLINIC WITH DR. TORREZ. THEY ARE EXPECTING YOU. TETANUS IMMUNIZATION GIVEN (TDAP): You have been given an immunization against tetanus. Please record this in your records. In general, a booster is needed only once every 10 years. The tetanus shot protects against tetanus or "lockjaw," which is a complication of certain wound infections (the tetanus shot cannot protect against the actual infection). The immunization site may become warm and red due to local reaction. If this occurs, apply warm compresses and take aspirin or ibuprofen to reduce inflammation and discomfort. Return for evaluation if the reaction becomes severe. - Billing Disposition and Condition Condition: STABLE Disposition: Home
== END 2019-07-08 09:15 | disposition home or self-care (01) ==
LOC: UCEAST 07:26
DX: S81.812A Laceration without foreign body, left lower leg, initial encounter (principal); L03.116 Cellulitis of left lower limb; V48.4XXA Person boarding or alighting a car injured in noncollision transport accident, initial encounter; Y92.9 Unspecified place or not applicable; I10 Essential (primary) hypertension; F17.210 Nicotine dependence, cigarettes, uncomplicated; Z85.46 Personal history of malignant neoplasm of prostate; Z79.82 Long term (current) use of aspirin; Z79.01 Long term (current) use of anticoagulants; Z23 Encounter for immunization; L97.822 Non-pressure chronic ulcer of other part of left lower leg with fat layer exposed; E78.5 Hyperlipidemia, unspecified; I73.9 Peripheral vascular disease, unspecified; M79.7 Fibromyalgia; Z95.818 Presence of other cardiac implants and grafts; Z79.52 Long term (current) use of systemic steroids
CPT/HCPCS: 11042; 90471; 90715; 99212; G0463

== ENCOUNTER 2021-06-30 13:02 | Inpatient (IN) ==
[2021-06-30 15:14] LABS: ABS Basophils 0.1 10^3/ul (0-0.2); ABS Lymphocytes 0.6 10^3/ul (1.0-4.8); ABS Monocytes 0.5 10^3/ul (0-0.8); ABS Neutrophils 6.9 10^3/ul (1.5-7.7); Eosinophil % 0.2 %; Hematocrit 33 % (42-52); Hemoglobin 11.6 g/dL (14.0-18.0); Lymphocyte % 7.8 %; Mean Corpuscular HGB Conc 35 g/dL (31-36); Mean Corpuscular Hemoglobin 33 pg (27-31); Mean Corpuscular Volume 95 fL (80-94); Mean Platelet Volume 8.2 fL (7.4-10.4); Platelet Count 227 10^3/uL (150-450); Red Blood Count 3.49 10^6 /uL (4.18-5.48); Red Cell Distribution Width 20 % (10-15)
[2021-06-30 15:18] LABS: Urine Appearance Clear; Urine Bilirubin Negative (Negative); Urine Blood Negative (Negative); Urine Color Yellow; Urine Glucose Negative (Negative); Urine Ketones Negative (Negative); Urine Nitrite Negative (Negative); Urine Protein 2+(100 mg/dL) (Negative); Urine Specific Gravity 1.013 (1.002-1.030); Urine Urobilinogen Negative (Negative)
[2021-06-30 15:23] LABS: Activated Partial Thrombo Time 25.4 seconds (26.0-38.0); INR 0.95 (0.86-1.15); Urine Bacteria Absent (Absent); Urine Red Blood Cell Trace(0-2/hpf) (Absent); Urine Squamous Epithelial Cell Present (Absent); Urine White Blood Cell Trace(0-5/hpf) (Absent)
[2021-06-30 15:39] LABS: Troponin I 0.05 ng/mL (<0.03)
[2021-06-30 15:55] LABS: ALT 20 U/L (7-52); AST 20 U/L (13-39); Albumin 3.7 g/dL (3.2-5.2); Albumin/Globulin Ratio 1.6 (1-3); Alkaline Phosphatase 75 U/L (35-149); Anion Gap 6 mmol/L (2-11); Blood Urea Nitrogen 38 mg/dL (6-24); CO2 Carbon Dioxide 28 mmol/L (22-32); Calcium 8.6 mg/dL (8.6-10.3); Chloride 100 mmol/L (101-111); EGFR African American 53.1 (>60); EGFR Non-African American 43.9 (>60); Globulin 2.3 g/dL (2-4); Glucose 126 mg/dL (70-100); Magnesium 2.3 mg/dL (1.9-2.7); Potassium 4.3 mmol/L (3.5-5.0); Sodium 134 mmol/L (135-145)
[2021-06-30 16:04] LABS: TSH Ultra Thyroid Stim Horm 1.01 mcIU/mL (0.34-5.60)
[2021-06-30 21:50] LABS: Vitamin B12 > 1450 pg/mL (180-914)
[2021-06-30] MEDS: Morphine ORAL.SOLN 10 mg 2 mg/ml UDC 5 ml (10 mg) PO PRN (22:47)
[2021-06-30] MEDS ORDERED: Alfuzosin ER 10 mg TAB.ER (NF) 10 MG TAB.ER PO ONE (23:00)
[2021-06-30 23:24] LABS: Rapid COVID-19 Molecular Undetected (Undetected)
[2021-07-01] MEDS: Heparin 5000 UNITS/ML 1 mL VIAL SUBCUT SCH ×3 (04:34→21:21)
[2021-07-01 04:48] LABS: ABS Basophils 0.1 10^3/ul (0-0.2); ABS Eosinophils 0.3 10^3/ul (0-0.6); ABS Lymphocytes 1.6 10^3/ul (1.0-4.8); ABS Monocytes 0.8 10^3/ul (0-0.8); ABS Neutrophils 6.3 10^3/ul (1.5-7.7); Eosinophil % 3.1 %; Hematocrit 35 % (42-52); Hemoglobin 11.9 g/dL (14.0-18.0); Lymphocyte % 17.4 %; Mean Corpuscular HGB Conc 34 g/dL (31-36); Mean Corpuscular Hemoglobin 32 pg (27-31); Mean Corpuscular Volume 95 fL (80-94); Mean Platelet Volume 8.3 fL (7.4-10.4); Platelet Count 240 10^3/uL (150-450); Red Blood Count 3.68 10^6 /uL (4.18-5.48); Red Cell Distribution Width 19 % (10-15)
[2021-07-01 05:02] LABS: Calcium 8.9 mg/dL (8.6-10.3); EGFR African American 54.8 (>60); EGFR Non-African American 45.3 (>60); Potassium 3.9 mmol/L (3.5-5.0)
[2021-07-01 05:38] LABS: Troponin I 0.08 ng/mL (<0.03)
[2021-07-01] MEDS: Morphine ORAL.SOLN 10 mg 2 mg/ml UDC 5 ml (10 mg) PO PRN (05:38)
[2021-07-01] MEDS: hydrALAZINE 20 mg/ml 1 ML Vial IV IV SLOW PU PRN (08:11)
[2021-07-01] MEDS: Cholecalciferol (VIT D3) 400 units TAB PO SCH ×2 (08:45→21:17)
[2021-07-01] MEDS: Aspirin EC 81 mg TAB.EC (enteric coated) PO SCH (08:46)
[2021-07-01] MEDS: Calcium Carb (TUMS) 500 mg CHEW TAB PO SCH ×2 (08:47→21:18)
[2021-07-01] MEDS ORDERED: FERROUS GLUCONATE PO SCH (09:00)
[2021-07-01 10:12] LABS: Troponin I 0.08 ng/mL (<0.03)
[2021-07-01] MEDS: CMC:Alfuzosin ER 10 mg TAB.ER (NF) 10 MG TAB.ER PO SCH ×2 (11:28→21:47)
[2021-07-01 12:16] LABS: C Reactive Protein 23.89 mg/L (<8.01)
[2021-07-01 13:46] LABS: Erythrocyte Sed Rate 2 mm/Hr (0-19)
[2021-07-02 06:17] LABS: Calcium 8.9 mg/dL (8.6-10.3); EGFR African American 45.5 (>60); EGFR Non-African American 37.6 (>60); Magnesium 2.5 mg/dL (1.9-2.7); Potassium 3.9 mmol/L (3.5-5.0)
[2021-07-02] MEDS: Heparin 5000 UNITS/ML 1 mL VIAL SUBCUT SCH ×2 (08:37→20:57)
[2021-07-02] MEDS: Aspirin EC 81 mg TAB.EC (enteric coated) PO SCH ×2 (10:33→12:08)
[2021-07-02] MEDS: CYANOCOBALAMIN 5000 MCG PO SCH (10:57)
[2021-07-02] MEDS: CMC:Alfuzosin ER 10 mg TAB.ER (NF) 10 MG TAB.ER PO SCH ×2 (10:57→22:47)
[2021-07-02] MEDS ORDERED: Magnesium Hydroxide LIQ 30 ML UDC PO PRN (10:59)
[2021-07-02] MEDS: Morphine ORAL.SOLN 10 mg 2 mg/ml UDC 5 ml (10 mg) PO PRN (11:04)
[2021-07-02] MEDS: Polyethylene Glycol 3350 17 GM PACKET PO SCH (11:39)
[2021-07-02] MEDS: Cholecalciferol (VIT D3) 400 units TAB PO SCH ×2 (12:08→20:56)
[2021-07-02] MEDS: Calcium Carb (TUMS) 500 mg CHEW TAB PO SCH ×2 (12:09→20:56)
[2021-07-02 13:27] LABS: C Reactive Protein 20.01 mg/L (<8.01)
[2021-07-02] MEDS: Senna TAB 8.6 mg TAB PO SCH (20:57)
[2021-07-03] MEDS: Cholecalciferol (VIT D3) 400 units TAB PO SCH ×2 (07:28→21:47)
[2021-07-03] MEDS: CMC:Alfuzosin ER 10 mg TAB.ER (NF) 10 MG TAB.ER PO SCH ×2 (07:58→21:46)
[2021-07-03] MEDS: CYANOCOBALAMIN 5000 MCG PO SCH (07:58)
[2021-07-03] MEDS: Heparin 5000 UNITS/ML 1 mL VIAL SUBCUT SCH ×2 (07:59→21:47)
[2021-07-03] MEDS: Polyethylene Glycol 3350 17 GM PACKET PO SCH (09:41)
[2021-07-03] MEDS: Calcium Carb (TUMS) 500 mg CHEW TAB PO SCH ×2 (09:48→21:47)
[2021-07-03 11:07] LABS: ABS Eosinophils 0.1 10^3/ul (0-0.6); ABS Lymphocytes 0.6 10^3/ul (1.0-4.8); ABS Monocytes 0.6 10^3/ul (0-0.8); ABS Neutrophils 7.4 10^3/ul (1.5-7.7); Eosinophil % 1.2 %; Hematocrit 31 % (42-52); Hemoglobin 10.6 g/dL (14.0-18.0); Lymphocyte % 6.7 %; Mean Corpuscular HGB Conc 34 g/dL (31-36); Mean Corpuscular Hemoglobin 33 pg (27-31); Mean Corpuscular Volume 96 fL (80-94); Mean Platelet Volume 8.4 fL (7.4-10.4); Platelet Count 240 10^3/uL (150-450); Red Blood Count 3.24 10^6 /uL (4.18-5.48); Red Cell Distribution Width 20 % (10-15); White Blood Count 8.7 10^3/uL (3.5-10.8)
[2021-07-03 11:27] LABS: Calcium 8.7 mg/dL (8.6-10.3); EGFR African American 37.3 (>60); EGFR Non-African American 30.9 (>60); Potassium 3.8 mmol/L (3.5-5.0)
[2021-07-03] MEDS: Aspirin EC 81 mg TAB.EC (enteric coated) PO SCH (11:43)
[2021-07-03 13:18] LABS: Urine Appearance Clear; Urine Bilirubin Negative (Negative); Urine Blood 1+ (Negative); Urine Color Yellow; Urine Glucose Negative (Negative); Urine Ketones Negative (Negative); Urine Nitrite Negative (Negative); Urine Protein 1+(30 mg/dL) (Negative); Urine Specific Gravity 1.008 (1.002-1.030); Urine Urobilinogen Negative (Negative)
[2021-07-03 13:25] LABS: Urine Bacteria 1+ (Absent); Urine Red Blood Cell Trace(0-2/hpf) (Absent); Urine Squamous Epithelial Cell Present (Absent); Urine White Blood Cell Trace(0-5/hpf) (Absent)
[2021-07-03] MEDS: Senna TAB 8.6 mg TAB PO SCH (21:48)
[2021-07-03] MEDS: Morphine ORAL.SOLN 10 mg 2 mg/ml UDC 5 ml (10 mg) PO PRN ×2 (22:02)
[2021-07-04 08:57] LABS: ABS Basophils 0.1 10^3/ul (0-0.2); ABS Eosinophils 0.1 10^3/ul (0-0.6); ABS Lymphocytes 2.3 10^3/ul (1.0-4.8); ABS Monocytes 0.9 10^3/ul (0-0.8); ABS Neutrophils 6.6 10^3/ul (1.5-7.7); Eosinophil % 1.4 %; Hematocrit 33 % (42-52); Hemoglobin 11.6 g/dL (14.0-18.0); Lymphocyte % 22.7 %; Mean Corpuscular HGB Conc 35 g/dL (31-36); Mean Corpuscular Hemoglobin 33 pg (27-31); Mean Corpuscular Volume 96 fL (80-94); Platelet Count 260 10^3/uL (150-450); Red Blood Count 3.48 10^6 /uL (4.18-5.48); Red Cell Distribution Width 19 % (10-15)
[2021-07-04 09:13] LABS: Calcium 8.5 mg/dL (8.6-10.3); EGFR African American 42.7 (>60); EGFR Non-African American 35.3 (>60); Potassium 4.3 mmol/L (3.5-5.0)
[2021-07-04] MEDS: Calcium Carb (TUMS) 500 mg CHEW TAB PO SCH ×2 (09:18→22:17)
[2021-07-04] MEDS: Cholecalciferol (VIT D3) 400 units TAB PO SCH ×2 (09:19→22:16)
[2021-07-04] MEDS: CMC:Alfuzosin ER 10 mg TAB.ER (NF) 10 MG TAB.ER PO SCH ×2 (09:20→22:15)
[2021-07-04] MEDS: Heparin 5000 UNITS/ML 1 mL VIAL SUBCUT SCH ×2 (09:20→22:18)
[2021-07-04] MEDS: CYANOCOBALAMIN 5000 MCG PO SCH (09:29)
[2021-07-04] MEDS: Polyethylene Glycol 3350 17 GM PACKET PO SCH (09:29)
[2021-07-04] MEDS: Morphine ORAL.SOLN 10 mg 2 mg/ml UDC 5 ml (10 mg) PO PRN (10:59)
[2021-07-04] MEDS: Aspirin EC 81 mg TAB.EC (enteric coated) PO SCH (14:08)
[2021-07-04] MEDS: Senna TAB 8.6 mg TAB PO SCH (22:16)
[2021-07-05] MEDS: hydrALAZINE 20 mg/ml 1 ML Vial IV IV SLOW PU PRN (01:42)
[2021-07-05 07:27] LABS: ABS Basophils 0.1 10^3/ul (0-0.2); ABS Eosinophils 0.2 10^3/ul (0-0.6); ABS Lymphocytes 2.2 10^3/ul (1.0-4.8); ABS Monocytes 0.8 10^3/ul (0-0.8); ABS Neutrophils 7.4 10^3/ul (1.5-7.7); Eosinophil % 1.5 %; Hematocrit 31 % (42-52); Hemoglobin 10.6 g/dL (14.0-18.0); Lymphocyte % 20.2 %; Mean Corpuscular HGB Conc 35 g/dL (31-36); Mean Corpuscular Hemoglobin 33 pg (27-31); Mean Corpuscular Volume 95 fL (80-94); Mean Platelet Volume 8.2 fL (7.4-10.4); Platelet Count 241 10^3/uL (150-450); Red Cell Distribution Width 19 % (10-15); White Blood Count 10.7 10^3/uL (3.5-10.8)
[2021-07-05 07:39] LABS: Calcium 8.7 mg/dL (8.6-10.3); EGFR African American 47.7 (>60); EGFR Non-African American 39.4 (>60); Potassium 3.9 mmol/L (3.5-5.0)
[2021-07-05] MEDS: Polyethylene Glycol 3350 17 GM PACKET PO SCH (09:25)
[2021-07-05] MEDS: CYANOCOBALAMIN 5000 MCG PO SCH (09:30)
[2021-07-05] MEDS: Heparin 5000 UNITS/ML 1 mL VIAL SUBCUT SCH ×2 (09:31→20:54)
[2021-07-05] MEDS: CMC:Alfuzosin ER 10 mg TAB.ER (NF) 10 MG TAB.ER PO SCH ×2 (09:32→19:29)
[2021-07-05] MEDS: Calcium Carb (TUMS) 500 mg CHEW TAB PO SCH ×2 (11:37→19:26)
[2021-07-05] MEDS: Cholecalciferol (VIT D3) 400 units TAB PO SCH ×2 (11:38→19:26)
[2021-07-05] MEDS: Aspirin EC 81 mg TAB.EC (enteric coated) PO SCH (11:42)
[2021-07-05] MEDS: Senna TAB 8.6 mg TAB PO SCH (19:26)
[2021-07-05] MEDS: Morphine ORAL.SOLN 10 mg 2 mg/ml UDC 5 ml (10 mg) PO PRN (19:38)
[2021-07-06] MEDS: CMC:Alfuzosin ER 10 mg TAB.ER (NF) 10 MG TAB.ER PO SCH ×2 (07:15→20:26)
[2021-07-06] MEDS: CYANOCOBALAMIN 5000 MCG PO SCH (07:16)
[2021-07-06] MEDS: Calcium Carb (TUMS) 500 mg CHEW TAB PO SCH ×2 (07:18→20:27)
[2021-07-06] MEDS: Cholecalciferol (VIT D3) 400 units TAB PO SCH ×2 (07:18→20:28)
[2021-07-06] MEDS: Polyethylene Glycol 3350 17 GM PACKET PO SCH (09:37)
[2021-07-06] MEDS: Heparin 5000 UNITS/ML 1 mL VIAL SUBCUT SCH ×2 (09:39→20:24)
[2021-07-06] MEDS: Aspirin EC 81 mg TAB.EC (enteric coated) PO SCH (11:58)
[2021-07-06] MEDS: Senna TAB 8.6 mg TAB PO SCH (20:28)
[2021-07-07] MEDS: Calcium Carb (TUMS) 500 mg CHEW TAB PO SCH (09:41)
[2021-07-07] MEDS: Cholecalciferol (VIT D3) 400 units TAB PO SCH (09:41)
[2021-07-07] MEDS: CMC:Alfuzosin ER 10 mg TAB.ER (NF) 10 MG TAB.ER PO SCH (09:43)
[2021-07-07] MEDS: Polyethylene Glycol 3350 17 GM PACKET PO SCH (09:43)
[2021-07-07] MEDS: CYANOCOBALAMIN 5000 MCG PO SCH (09:43)
[2021-07-07] MEDS: Heparin 5000 UNITS/ML 1 mL VIAL SUBCUT SCH (09:44)
[2021-07-07 11:42] VITALS: BP 119/31
[2021-07-07] MEDS: Morphine ORAL.SOLN 10 mg 2 mg/ml UDC 5 ml (10 mg) PO PRN (12:06)
[2021-07-07] MEDS: Aspirin EC 81 mg TAB.EC (enteric coated) PO SCH (12:07)
== END 2021-07-07 13:55 | DRG 91 ==
LOC: ED 13:02 → MED 13:02 → SUATTDRO 20:13 → SSU 07-01 18:09
PROVIDERS: ADMIT Internal Medicine; ATTEND Internal Medicine